=== PATIENT | female | born 2005 | race Caucasian/White ===

== ENCOUNTER 2024-11-08 12:15 | Emergency (ER) | payer BC, SELFPAY ==
[2024-11-08 12:26] VITALS: BP 130/87; PULSE 92; RESP 16; TEMP 36.9; O2SAT 99; BMI 23.1
[2024-11-08] MEDS: LIDOCAINE 5% TRANSDERMAL PATCH 1 EACH TD (12:37)
--- NOTE | 2024-11-08 12:37 | ED_ITS ---
<Statement entered by Vijay Givens DO - 11/09/24 17:37> I was consulted by the SARAH, and we discussed the complexity of problems being addressed. I approved the treatment and management plan for this patient's care in the emergency department, thus performing a substantive portion of the medical decision making. Vijay Givens DO Discharge Plan Disposition Patient Disposition: Home, Self-Care Prescriptions Prescriptions: New methocarbamol 500 mg tablet 500 mg PO BID PRN (Reason: pain) 7 Days Qty: 14 0RF Referrals Follow up/Referrals: Tank Beavers APRN [Primary Care Provider, Medical] - See instructions Activity Restrictions/Add. Instructions Additional Instructions/Restrictions: Today you were evaluated in the emergency department. You most likely have a viral URI, please check your respiratory panel on your portal sarah for that result. Please continue to take Tylenol & Motrin, I have given you a prescription for the muscle relaxer. Please rest. Increase your fluid intake. Follow-up with your PCP and return to the ED for any worsening of your condition. Clinical Impressions Clinical Impression: Upper respiratory infection, viral, Neck pain Stand Alone Forms Stand Alone Forms: Work/School Release Instructions Patient Instructions: DI for Viral Upper Respiratory Infection -- Adult, DI for Neck Pain Print Language Print Language: Bulgarian Discharge ED Provider: Vijay Givens General Adult HPI General Chief complaint: Upper Respiratory Infection Stated complaint: neck pain, sore throat Time Seen by Provider: 11/08/24 12:20 Mode of Arrival: Ambulatory Source of Information: Patient Description of Symptoms (Recalled from ER Triage Doc. by RN): pt c/o sore throat and neck pain x1 week. nasal drainage. History of Present Illness HPI narrative: patient is a 18-year-old female PMHx mental health disorders who presents to the ED for complaints of congestion, bilateral ear pressure, nausea and fatigue x 1 week. Patient states she works at [employer]. She states she has had mild posterior neck pain, has recently got a new pillow this week. Related Data Previous Rx's ?Medication ?Instructions ?Recorded methocarbamol 500 mg tablet 500 mg PO BID PRN pain 7 d ays #14 11/08/24 tabs Allergies Allergy/AdvReac Type Severity Reaction Status Date / Time No Known Allergies Allergy Verified 11/08/24 13:46 [facility] Disclaimer: The information contained in this section may have been updated after the patient was seen, as this information can be updated by other users. Social History Smoking Status: Current every day smoker alcohol intake: never current occupational status: employed Travel in the last 8 weeks?: None ROS Obtained: Yes Systems reviewed as appropriate & no additional complaints except as documented Physical Exam General General appearance: alert Head Head exam: atraumatic Eye Eye exam: Present PERRL and EOMI ENT ENT exam: Present other (Bilateral clear effusion. Posterior pharyngeal erythema, clear drainage) Neck Neck exam: Present full ROM and trachea midline; Absent tenderness or meningismus Respiratory Respiratory exam: Present normal lung sounds bilaterally Cardiovascular Cardiovascular exam: Present regular rate Abdominal Exam Abdominal exam: Present soft Extremities Exam Extremities exam: Present full ROM Back Exam Back exam: Present full ROM Neurological Exam Neurological exam: Present alert and oriented X3 Psychiatric Psychiatric exam: Present normal affect Skin Skin exam: Present warm and dry Medical Decision Making Medical Records Screening: Per USPSTF and CDC recommendations, given the prevalence of disease in our region, it is our hospital?s policy to screen for HIV and viral Hepatitis for all patients aged 18 and over and those with ongoing risk factors. Zeeshan Inquiry Pt receiving controlled substance: No Vital Signs: 11/08/24 12:26 11/08/24 13:50 Temperature 98.4 F 98.1 F Temperature Source Oral Pulse Rate 89 Pulse Rate [Right] 92 H Respiratory Rate 16 18 Blood Pressure 134/77 Blood Pressure [Right Arm] 130/87 Blood Pressure Mean [Right Arm] 101 02 Sat by Pulse Oximetry 99 Oxygen Delivery Method Room Air Orders (Tests/Meds): ED MEDICATIONS Discontinued Medications Generic Name Dose Route Start Last Admin Trade Name Gracie PRN Reason Stop Dose Admin Lidocaine 1 each 11/08/24 12:24 11/08/24 12:37 Lidocaine 5% Transdermal Patch TD 11/08/24 12:25 1 each ONCE ONE Administration Methocarbamol 500 mg 11/08/24 12:25 11/08/24 12:38 Methocarbamol 500mg Tablet PO 11/08/24 12:26 500 mg ONCE ONE Administration Ondansetron HCl 4 mg 11/08/24 12:24 11/08/24 12:38 Ondansetron 4mg Odt SL 11/08/24 12:25 4 mg ONCE ONE Administration ORDERS Category Date Time Status Full Resp Panel w/COVID ([facility]) Routine Lab 11/08/24 12:40 Received Medical Decision Narrative: In summary, patient is a 18-year-old female PMHx mental health disorders who presents to the ED for complaints of congestion, bilateral ear pressure, nausea and fatigue x 1 week. Patient states she works at [employer]. She states she has had mild posterior neck pain, has recently got a new pillow this week. She advises she has taken acetaminophen and ibuprofen for her symptoms, last dose was 1 hour prior to arrival. Patient denies any chance of . Denies fever, chills, visual changes, neck stiffness, chest pain, shortness of breath, abdominal pain, dysuria. Upon initial evaluation patient is alert, oriented and cooperative. She is hemodynamically stable. Her physical exam is unremarkable. Differential diagnosis include respiratory virus, infectious process, electrolyte abnormality, among others. Discussed with patient we will proceed with respiratory swab, Zofran and Robaxin for neck pain. Upon reassessment, patient's condition has improved. She states she feels much better. She states the Lidoderm patch and Robaxin has helped with her posterior neck pain. We discussed that she can continue to take acetaminophen and ibuprofen at home. I advised her that I feel like she has a viral URI, she should increase her fluid intake and rest. Discussed need for follow-up with PCP and return precautions to the ED. Patient verbalized understanding, she was agreeable to discharge home. She remained hemodynamically stable and ambulatory from the ED without difficulty. Critical Care Critical Care Time Critical Care Time: No
[2024-11-08] MEDS: METHOCARBAMOL 500MG TABLET 500 MG PO (12:38)
[2024-11-08] MEDS: ONDANSETRON 4MG ODT 4 MG SL (12:38)
[2024-11-08 12:45] LABS: Adenovirus,PCR Not Detected (NotDetected); Chlamydophila Pneumoniae, PCR Not Detected (NotDetected); Coronavirus 19, PCR Not Detected (NotDetected); Coronovirus HKU1,PCR Not Detected (NotDetected); Influenza A, PCR Not Detected (NotDetected); Influenza AH1, 2009 Not Detected (NotDetected); Influenza AH1, PCR Not Detected (NotDetected); Influenza AH3,PCR Not Detected (NotDetected); Influenza B, PCR Not Detected (NotDetected); Mycoplasma Pneumoniae, PCR Not Detected (NotDetected); Parainfluenza 1, PCR Not Detected (NotDetected); Parainfluenza 2, PCR Not Detected (NotDetected); Parainfluenza 3, PCR Not Detected (NotDetected); Parainfluenza 4, PCR Not Detected (NotDetected)
--- OUTSIDE RECORDS SUMMARY | 2024-11-08 12:48 | XMS_ITS | Clinical Summary ---
Author Organization Healthcare Address [address] [place], [place] [id number] Care Team Providers Care Milling Machine Operator Gear Name Role Phone Pcp, No Primary Care Provider Unavailabl e Allergies No known active allergies Medications methocarbamol (Robaxin) 500 MG tablet Take 1 tablet (500 mg total) by mouth 4 (four) times a day if needed for muscle spasms for up to 10 days. 40 tablet 06/15/2022 Active Social History Tobacco Use Types Packs/Day Years Used Date Smoking Tobacco: Never Smokeless Tobacco: Never Tobacco Cessation:Counseling Given: Not Answered Alcohol Use Standard Drinks/Week Comments Never 0 (1 standard drink = 0.6 oz pur e alcohol) Comments Unknown Sex and Gender Information Value Date Recorded Sex Assigned at Not on file Legal Sex Female 6:31 PM EDT Gender Identity Not on file Sexual Orientation Not on file Last Filed Vital Signs Vital Sign Reading Time Taken Comments Blood Pressure 105/72 06/15/2022 11:02 PM EDT Pulse 73 06/15/2022 11:02 PM EDT Temperature 36.7 C (98.1 F) 06/15/2022 6:35 PM EDT Respiratory Rate 16 06/15/2022 11:02 PM EDT Oxygen Saturation 100% 06/15/2022 11:02 PM EDT Inhaled Oxygen Concentration - - Weight 61.2 kg (135 lb) 06/15/2022 7:39 PM EDT Height 162.6 cm (5' 4 ) 06/15/2022 7:39 PM EDT Body Mass Index 23.17 06/15/2022 7:39 PM EDT Plan of Treatment Health Maintenance Due Date Last Done Comments [facility]-Depression Screening 2003 [facility]-HIV Screening 2003 [facility]-Hepatitis C Screening 2003 [facility]-/Child/Adol SDOH Screenings 2003 HPV Vaccines (1 - 3-dose series) 12/04/2018 [facility]- SDOH Screenings 12/04/2021 [facility]-Adult SDOH Screenings 12/04/2021 [id number] Vaccine (1 - 2023-25 season) 2023 [facility]-DTaP,Tdap,and Td Vaccines (7 - Td or Tdap) 06/10/2024 06/10/2014, 12/06/2007, 03/06/2005, Additional history exists [facility]-Influenza Vaccine (#1) 2024 12/28/2009 [facility]-Zoster Vaccines (1 of 2) 12/04/2053 06/10/2014, 2004 [facility]-Hepatitis B Vaccines Completed 005, 02/01/2004, 2003 [facility]-HIB Vaccines Completed 2004, 12/2004, 02/01/2004 [facility]-Pneumococcal Vaccine: Pediatrics (0 to 5 Years) and At-Risk Patients (6 to 49 Years) Aged Out 03/06/2005, 06/09/2004, 04/04/2004, Additional history exists No longer eligible based on patient's age to complete this topic [facility]-IPV Vaccines Completed 12/06/2007, , 04/04/2004, Additional history exists [facility]-Varicella Vaccines Completed 06/10/2014, 2004 [facility]-Hepatitis A Vaccines Completed 2017, 09/2017 [facility]-Rotavirus Vaccines Aged Out No lo nger eligible based on patient's age to complete this topic Insurance [employer] Care Teams Milling Machine Operator Gear Relationship Specialty Start Date End Date Pcp, [place] [address] PCP - General Family Medicine 06/15/22
--- OUTSIDE RECORDS SUMMARY | 2024-11-08 12:48 | XMS_ITS | Clinical Summary ---
Author Organization [facility] Address [address] [place] [address] Care Team Providers Care Stunt Person Name Role Phone Annamaria Lopez MD Primary Care Provider [phone] Allergies No known active allergies Medications triazolam (HALCION) 0.25 MG tablet take 1 tablet at bedtime THE NIGHT BEFORE APPOINTMENT take THE SE... (REFER TO PRESCRIPTION NOTES). 0 9 Active Active Problems No known active problems Family History Medical History Relation Name Comments No Known Problems Brother No Known Problems Father No Known Problems Maternal Grandfather No Known Problems Maternal Grandmother No Known Problems Mother No Known Problems Paternal Grandfather No Known Problems Paternal Grandmother No Known Problems Sister Relation Name Status Comments Brother Alive Father Alive Maternal Grandfather Alive Maternal Grandmother Alive Mother Alive Paternal Grandfather Alive Paternal Grandmother Alive Sister Alive Social History Tobacco Use Types Packs/Day Years Used Date Smoking Tobacco: Passive Smo ke Exposure - Never Smoker Smokeless Tobacco: Never Comments:no second hand smok e exposure Alcohol Use Standard Drinks/Week Comments Defer 0 (1 standard drink = 0.6 oz pur e alcohol) Abuse Screen Answer Date Recorded Unsafe at Home or Work/School Not on file Feels Threatened by Someone? Not on file 12/2022 Does Anyone Keep You from Co ntacting Others or Doint Things Outside the Home? Not on file 01/02/2023 Physical Sign of Abuse Present Not on file 1 Housing Stability Answer Date Recorded Current Living Arrangements Not on file 12/24 Potentially Unsafe Housing Conditions Not on ting e 01/02/2023 Family and Community Support Answer Kevin e Recorded Help with Day-to-Day Activities Not on file 01/02/2023 Lonely or Isolated Not on file 01/02/2023 Employment Answer Date Recorded Do you want help finding or keeping work or a morris b? Not on file 01/02/2023 Disabilities Answer Date Recorded Concentrating, Remembering, or Making Decisions Difficulty Not on file 01/02/2023 Doing Errands Independently Difficulty Not on fi le 01/02/2023 Education Answer Date Recorded Help with school or training? Not on file Preferred Language Not on file 01/02/2023 Comments No Sex and Gender Information Value Date Recorded Sex Assigned at Not on file Legal Sex Female 1:50 PM EDT Gender Identity Not on file Sexual Orientation Not on file Last Filed Vital Signs Vital Sign Reading Time Taken Comments Blood Pressure - - Pulse 139 04/05/2019 3:48 PM EST Temperature 39 C (102.2 F) 04/05/2019 3:48 PM EST Respiratory Rate 20 04/05/2019 3:48 PM EST Oxygen Saturation 97% 04/05/2019 3:48 PM EST Inhaled Oxygen Concentration - - Weight 60.8 kg (134 lb) 04/05/2019 3:48 PM EST Height 162.6 cm (5' 4 ) 04/05/2019 3:48 PM EST Body Mass Index 23 04/05/2019 3:48 PM EST Plan of Treatment Health Maintenance Due Date Last Done Comments ANNUAL PHYSICAL 04/29/2017 HEPATITIS C SCREENING 04/29/2017 HPV VACCINES (1 - 3-dose series) 12/04/2018 MENINGOCOCCAL B VACCINE (1 o f 2 - Standard) 2019 COVID-19 Vaccine ( - 2023-2 5 season) 2023 TDAP/TD VACCINES (2 - Td or Tdap) 06/10/2024 015 INFLUENZA VACCINE 12/24/2024 MENINGOCOCCAL VACCINE Aged Out No varinder ora eligible based on patient's age to complete this topic Pneumococcal Vaccine 0-49 Aged Out No longer eligible based on patient's age to complete this topic Insurance [employer] Care Teams Stunt Person Relationship Specialty Start Date End Date Annamaria Lopez MD [address] [place] [address] PCP - General Pediatrics 11/22/15
--- NOTE | 2024-11-08 13:49 | PC.NURSE ---
pt reports improvement in all symptoms.
[2024-11-08 13:50] VITALS: BP 134/77; PULSE 89; RESP 18; TEMP 36.7; O2SAT 99
== END 2024-11-08 13:52 | disposition home or self-care (01) ==
PROVIDERS: Nurse Practitioner; Emergency Provider Student in an Organized Health Care Education/Training Program; PCP Registered Nurse
DX: M54.2 Cervicalgia (principal); J06.9 Acute upper respiratory infection, unspecified
CPT/HCPCS: 0223U; 99283; Q0162

== ENCOUNTER 2025-01-15 09:45 | Emergency (ER) | payer OTHER, SELFPAY ==
[2025-01-15 09:47] VITALS: BP 137/93; PULSE 76; RESP 20; TEMP 36.7; O2SAT 98; BMI 23.1
[2025-01-15 09:51] VITALS: BP 137/93; PULSE 76; O2SAT 97
--- NOTE | 2025-01-15 09:56 | XR_ITS ---
FINAL REPORT CLINICAL HISTORY: Object dropped on wrist, pain COMPARISON: None FINDINGS: LEFT WRIST THREE VIEW FINDINGS: Three views show no evidence of an acute, displaced fracture or dislocation of the visualized bony architecture. The joint spaces appear normal. IMPRESSION: Unremarkable exam. Reviewed, Interpreted and Dictated by En Mistry MD Transcribed by Magda Spencer Authenticated and [facility]
--- NOTE | 2025-01-15 09:58 | ED_ITS ---
Discharge Plan Disposition Patient Disposition: Home, Self-Care Prescriptions Prescriptions: No Action methocarbamol 500 mg tablet 500 mg PO BID PRN (Reason: pain) 7 Days Qty: 14 0RF Referrals Follow up/Referrals: Tank Beavers APRN [Primary Care Provider, Medical] - See instructions Activity Restrictions/Add. Instructions Additional Instructions/Restrictions: X-ray imaging does not show any fractures. You likely have a deep bruise. You can take Tylenol and ibuprofen to help with your symptoms. Wear the splint as needed for comfort. Follow-up with your primary care doctor if symptoms do not improve. Clinical Impressions Clinical Impression: Acute pain of left wrist Print Language Print Language: Yoruba Discharge ED Provider: Dandre Griffith General Adult HPI General Chief complaint: Extremity Injury, Upper Stated complaint: AO 01/13 Dropped 50lbs on L Wrist - work related Time Seen by Provider: 01/15/25 09:53 History of Present Illness HPI narrative: Kristal Cantu is a 19F with no significant past medical history who presents to the emergency department for left wrist pain after having an object dropped on a 2 days ago. Patient states that she was moving a box of marta litter that weighed 50 pounds when it fell on her left wrist 2 days ago. She is been taking Tylenol but states that she is having pain in the radial side of her left wrist ever since. She states that the pain shoots up into her hand and her forearm. She has no other injuries or concerns at this time. Related Data Previous Rx's ?Medication ?Instructions ?Recorded methocarbamol 500 mg tablet 500 mg PO BID PRN pain 7 d ays #14 11/08/24 tabs Allergies Allergy/AdvReac Type Severity Reaction Status Date / Time No Known Allergies Allergy Verified 11/08/24 13:46 [facility] Disclaimer: The information contained in this section may have been updated after the patient was seen, as this information can be updated by other users. Social History (Updated 11/08/24 @ 14:00 by Annamaria Zarate APRN) Smoking Status: Current every day smoker alcohol intake: never current occupational status: employed Travel in the last 8 weeks?: None Have you lived/traveled outside US in past 30 days?: No Contact w/someone who lives/traveled outside US past 30 days?: No Exposure to someone with infectious disease in past 14 days?: No Do you have a fever (greater than 100.4 F or 38 C)?: No Have you tested positive for COVID-19?: No Exposed to someone with COVID-19 in past 14 days?: No Do you have a sore throat?: No Do you have a cough?: No Do you have any weakness?: No Do you have any diarrhea?: No Are you experiencing any unusual bleeding?: No Do you have any muscle aches/pain?: No Do you have any abdominal pain?: No Are you experiencing loss of taste or smell?: No ROS Obtained: Yes Systems reviewed as appropriate & no additional complaints except as documented Physical Exam General General appearance: alert and in no apparent distress Head Head exam: atraumatic Eye Eye exam: Present normal appearance ENT ENT exam: Present normal external ear exam Neck Neck exam: Present full ROM Chest Chest inspection: Present symmetric chest wall rise Respiratory Respiratory exam: Present normal lung sounds bilaterally; Absent respiratory distress, wheezes or stridor Cardiovascular Cardiovascular exam: Present regular rate and normal rhythm Abdominal Exam Abdominal exam: Absent distention Extremities Exam Extremities exam: Present normal inspection Expanded Upper Extremity Exam Left: L/R Arms Bottom View: 2 1. tenderness, no deformity Comment: Left upper extremity: 2+ radial pulse. Can resist flexion and extension function at the wrist. Tenderness over the distal radius without deformity. No tenderness in the hand. Lumbricals intact. Sensation grossly intact. Back Exam Back exam: Present normal inspection Neurological Exam Neurological exam: Present alert and oriented X3 Psychiatric Psychiatric exam: Present normal affect Skin Skin exam: Present warm and dry Medical Decision Making Medical Records Screening: Per USPSTF and CDC recommendations, given the prevalence of disease in our region, it is our hospital?s policy to screen for HIV and viral Hepatitis for all patients aged 18 and over and those with ongoing risk factors. Zeeshan Inquiry Pt receiving controlled substance: No Vital Signs: 01/15/25 09:47 01/15/25 09:51 Temperature 98.1 F Temperature Source Oral Pulse Rate 76 Pulse Rate [Right Radial] 76 Respiratory Rate 20 Blood Pressure 137/93 H Blood Pressure [Right Arm] 137/93 H Blood Pressure Mean [Right Arm] 107 02 Sat by Pulse Oximetry 98 97 Oxygen Delivery Method Room Air Room Air Orders (Tests/Meds): ED MEDICATIONS Discontinued Medications Generic Name Dose Route Start Last Admin Trade Name Freq PRN Reason Stop Dose Admin Ibuprofen 600 mg 01/15/25 09:56 01/15/25 10:19 Ibuprofen 600 Mg Tablet PO 01/15/25 09:57 600 mg ONCE ONE Administration ORDERS Category Date Time Status Wrist XR left 2 views [XR wrist LT 2V] Stat Exams 01/15/25 09:56 Completed Medical Decision Narrative: Kristal Cantu is a 19F with no significant past medical history who presents to the emergency department for left wrist pain after having an object dropped on a 2 days ago. Patient states that she was moving a box of marta litter that weighed 50 pounds when it fell on her left wrist 2 days ago. She is been taking Tylenol but states that she is having pain in the radial side of her left wrist ever since. She states that the pain shoots up into her hand and her forearm. She has no other injuries or concerns at this time. On arrival, patient is hemodynamically stable, in no acute distress, breathing comfortably on room air. Afebrile. Physical exam, as stated above, revealed overall well-appearing female in no respiratory distress. She has tenderness over the distal left radius but 2+ radial pulse. Flexor and extension function at the wrist intact. Lumbricals intact. No deformities are appreciated. Mill Controller strength is intact. No tenderness at the anatomical snuffbox. No tenderness throughout the forearm or elbow. Differential diagnosis includes, but is not limited to: Distal radius fracture, bruising, soft tissue injury, among others. The most morbid conditions were considered and workup was based on these. Will obtain left wrist x-ray to rule out fracture. Will also administer 600 mg of oral ibuprofen for pain. X-ray imaging interpreted by me personally and demonstrated no fracture or dislocation. See radiology report for details. On reassessment, patient remained stable condition. Will give thumb spica splint for comfort and instructed her to take Tylenol and ibuprofen for symptoms. Instructed her to follow-up with her primary care physician if symptoms persist. All questions were answered. She demonstrated understanding and was in agreement this plan. She was then discharged from the emergency department in stable condition. Critical Care Critical Care Time Critical Care Time: No
[2025-01-15] MEDS: IBUPROFEN 600 MG TABLET PO (10:19)
--- OUTSIDE RECORDS SUMMARY | 2025-01-15 10:29 | XMS_ITS | Clinical Summary ---
Author Organization Healthcare Address [address] [place], [place] [id number] Care Team Providers Care Food And Drug Research Scientist Name Role Phone Pcp, No Primary Care [...] SDOH Screenings 12/04/2021 [facility]-Adult SDOH Screenings 12/04/2021 [facility]-DTaP,Tdap,and Td Vaccines (7 - Td or Tdap) 06/10/2024 06/10/2014, 12/06/2007, 03/06/2005, Additional history exists [id number] Vaccine (1 - 2023- season) 2024 [facility]-Influenza Vaccine (#1) 2024 12/28/2009 [facility]-Pap Smear 12/04/2024 [facility]-Zoster Vaccines (1 of 2) 12/04/2053 06/10/2014, [...] patient's age to complete this topic Insurance [employer] Care Teams Food And Drug Research Scientist Relationship Specialty Start Date End Date Pcp, Olya [address] [place] [address] PCP - General Family Medicine 06/15/22
--- OUTSIDE RECORDS SUMMARY | 2025-01-15 10:29 | XMS_ITS | Clinical Summary ---
Author Organization [facility] Address [address] [place] [address] Care Team Providers Care Food Service Director Name Role Phone Annamaria Lopez MD Primary Care Provider [phone] Allergies No known active allergies Medications triazolam [...] Health Maintenance Due Date Last Done Comments Annual Gynecologic Pelvic an d Breast Exam 2003 ANNUAL PHYSICAL 04/29/2017 HEPATITIS C SCREENING 04/29/2017 HPV VACCINES (1 - 3-dose series) 12/04/2018 MENINGOCOCCAL B VACCINE (1 o f 2 - Standard) 2019 TDAP/TD VACCINES (2 - Td or Tdap) 06/10/2024 015 INFLUENZA VACCINE 10/24/2024 MENINGOCOCCAL VACCINE Aged Out No varinder ora eligible based on patient's age to complete this topic Pneumococcal Vaccine 0-49 Aged Out No longer eligible based on patient's age to complete this topic Insurance [employer] Care Teams Food Service Director Relationship Specialty Start Date End Date Annamaria Lopez MD [address] [place] [address] PCP - General Pediatrics 11/22/15
[2025-01-15 11:02] VITALS: BP 130/86; PULSE 75; RESP 20; TEMP 36.8; O2SAT 98
--- NOTE | 2025-01-15 11:04 | PC.NURSE ---
left wrist with thumb spica placed on patient per ER Md order. pms intact post application and answered all of patient questions
== END 2025-01-15 11:05 | disposition home or self-care (01) ==
PROVIDERS: Emergency Provider Student in an Organized Health Care Education/Training Program; PCP Registered Nurse
DX: M25.532 Pain in left wrist (principal); W20.8XXA Other cause of strike by thrown, projected or falling object, initial encounter
CPT/HCPCS: 73100; 99283